=== PATIENT | female | born 1950 | race African-American/Black ===

== ENCOUNTER 2016-09-04 11:30 | Inpatient (IN) | payer OTHER ==
[~2016-09-04] VITALS: Ht 154.9 cm; Wt 83.9 kg
[2016-09-04 11:58] VITALS: BP 118/82
--- NOTE | 2016-09-04 12:00 | NUR ---
Patient ambulated to bed 06.
--- NOTE | 2016-09-04 12:05 | NUR ---
Dr. Connelly evaluating patient at bedside.
--- NOTE | 2016-09-04 12:10 | NUR ---
XRAY at bedside.
--- NOTE | 2016-09-04 12:12 | NUR ---
66/F TO ED WITH C/O GEN WEAKNESS AND BODY ACHES X1 WEEK. DENIES N/V/D. PAIN 01/04. LUNGS CLEAR BILAT. HR EVEN AND REGULAR. AAOX4. VSS. NO SIGNS OF DISTRESS. ERMD TO BEDSIDE FOR EVAL.
[2016-09-04] MEDS ORDERED: PROAIR HFA8.5 GM IH (12:49)
[2016-09-04] MEDS ORDERED: ALDACTONE25 MG PO (12:49)
[2016-09-04] MEDS ORDERED: SINGULAIR10 MG PO (12:49)
[2016-09-04] MEDS ORDERED: DILAUDID2 MG PO (12:49)
[2016-09-04] MEDS ORDERED: LASIX20 MG PO (12:49)
[2016-09-04] MEDS ORDERED: NEURONTIN400 MG PO (12:49)
[2016-09-04] MEDS ORDERED: BREO ELLIPTA1 POW IH (12:49)
[2016-09-04] MEDS ORDERED: POTASSIUM CHLO10 ME2 PO (12:49)
[2016-09-04] MEDS ORDERED: TIZANIDINE PO (12:49)
[2016-09-04] MEDS ORDERED: PROZAC10 MG PO (12:49)
[2016-09-04] MEDS ORDERED: LIDODERM 5%1 EA TP (12:49)
[2016-09-04] MEDS ORDERED: SPIRIVA MD18 MCG/CAP INH (12:49)
[2016-09-04] MEDS ORDERED: LEFLUNOMIDE20 MG PO (12:49)
[2016-09-04] MEDS ORDERED: ECOTRIN81 M2 PO (12:49)
[2016-09-04] MEDS ORDERED: ATIVAN1 MG PO (12:49)
[2016-09-04] MEDS ORDERED: METOPROLOL TART25 MG PO (12:49)
[2016-09-04] MEDS ORDERED: LIPITOR40 MG PO (12:49)
[2016-09-04] MEDS ORDERED: OMEPRAZOLE DR20 MG PO (12:49)
[2016-09-04] MEDS ORDERED: ELAVIL25 MG PO (12:49)
[2016-09-04] MEDS ORDERED: FERROUS SULFAT325 MG PO (12:49)
[2016-09-04] MEDS ORDERED: POTASSIUM CHL 20 MEQ/NACL 0.9% 1,000 ML IV ONE (13:10)
[2016-09-04] MEDS ORDERED: POTASSIUM CHLORIDE 10 MEQ TABER PO ONE (13:10)
--- NOTE | 2016-09-04 13:35 | NUR ---
Patient appears to be resting comfortably in bed. Vital Signs within normal limits. Respirations even and unlabored.
--- NOTE | 2016-09-04 14:11 | NUR ---
Patient will be admitted to care of DR DONALDSON. Admited to TELE. Will go to [id number]. Belongings list completed. Report to NEIL COLES.
[2016-09-04 14:30] VITALS: BP 134/87
--- NOTE | 2016-09-04 15:00 | NUR ---
PT ADMITTED FROM HOME WITH DX: GENERALIZED WEAKNESS, FAILURE TO THRIVE. PT AAOX4. AMBULATED TO BED. PT HAS IV TO RIGHT AC C/O PAIN IV SALINE LOCKED. PATIENT HAS HX OF COPD, ASTHMA, EMPHYSEMA, DENIES ACUTE SOB. DENIES CHEST PAIN. C/O BACK PAIN, WILL F/U WITH HOME MEDS. PT ORIENTED TO HOSPITAL ENVIRONMENT AND CALL LIGHT. VERBALIZED UNDERSTANDING. WILL CONTINUE TO MONITOR.
[2016-09-04 16:00] VITALS: BP 125/69
--- NOTE | 2016-09-04 16:00 | NUR ---
SPOKE WITH DR. DONALDSON REGARDING PT PAIN AND DIET. NEW ORDERS RECEIVED.
[2016-09-04] MEDS: HYDROmorphone 2 MG TAB PO PRN ×2 (16:19→23:55)
[2016-09-04] MEDS: DEXT 5% /NACL 0.9% 1,000 ML IV SCH (16:19)
--- NOTE | 2016-09-04 19:12 | NUR ---
ENDORSED PLAN OF CARE TO NEIL Jamil AT PT BEDSIDE. PT RESTING IN BED. NO S/S OF ACUTE DISTRESS.
--- NOTE | 2016-09-04 19:25 | NUR ---
REPORT RECEIVED FROM DAY NURSESHARYN. PATIENT RESTING IN BED, WATCHING TELEVISION. NO RESPIRATORY DISTRESS, SOB, OR DISCOMFORT. INITIAL ASSESSMENT AND BODY CHECK DONE. PATIENT IS AOX4, SKIN IS INTACT, IV ACCESS TO RIGHT HAND 22G, PATENT. PATIENT SHOWS SIGNS OF GENERALIZED WEAKNESS AT THIS TIME. DISCUSSED PLAN OF CARE, MEDICATION REGIMENT, AND PAIN MANAGEMENT WITH PATIENT. PATIENT VERBALIZED UNDERSTANDING. PLACED PATIENT ON SAFETY/FALL PRECAUTIONS. CALL LIGHT LEFT WITHIN REACH, WILL CONTINUE TO MONITOR.
[2016-09-04] MEDS ORDERED: ONDANSETRON 4 MG/2 ML VIAL IVP PRN (19:40)
[2016-09-04] MEDS ORDERED: ALBUTEROL SULFATE/IPRATROPIU 3 ML SOL IH PRN (19:40)
[2016-09-04] MEDS ORDERED: ACETAMINOPHEN 325 MG TAB PO PRN (19:40)
[2016-09-04 20:00] VITALS: BP 158/72
[2016-09-04] MEDS ORDERED: FUROSEMIDE 20 MG TAB PO SCH (21:00)
[2016-09-04] MEDS ORDERED: TIZANIDINE HCL 4 MG PO SCH (21:00)
--- NOTE | 2016-09-04 22:04 | NUR ---
PATIENT IN BED, SLEEPING. NO RESPIRATORY DISTRESS, SOB, OR DISCOMFORT. CALL LIGHT LEFT WITHIN REACH, WILL CONTINUE TO MONITOR.
[2016-09-04] MEDS: FERROUS SULFATE 325 MG TABEC PO SCH (23:19)
[2016-09-04] MEDS: AMITRIPTYLINE 25 MG TAB PO SCH (23:19)
[2016-09-04] MEDS: ATORVASTATIN 20 MG TAB PO SCH (23:20)
[2016-09-04] MEDS: MONTELUKAST SODIUM 10 MG TAB PO SCH (23:20)
[2016-09-05] VITALS: BP 125/82
--- NOTE | 2016-09-05 00:54 | NUR ---
PATIENT ASLEEP. NO RESPIRATORY DISTRESS, SOB, OR DISCOMFORT. CALL LIGHT LEFT WITHIN REACH, WILL CONTINUE TO MONITOR.
--- NOTE | 2016-09-05 03:05 | NUR ---
PATIENT SLEEPING. NO RESPIRATORY DISTRESS, SOB, OR DISCOMFORT. CALL LIGHT LEFT WITHIN REACH, WILL CONTINUE TO MONITOR.
[2016-09-05 04:00] VITALS: BP 108/74
[2016-09-05] MEDS: DEXT 5% /NACL 0.9% 1,000 ML IV SCH ×3 (05:25→22:29)
--- NOTE | 2016-09-05 06:15 | NUR ---
PATIENT IN BED, ASLEEP. NO RESPIRATORY DISTRESS, SOB, OR DISCOMFORT. CALL LIGHT LEFT WITHIN REACH, WILL CONTINUE TO MONITOR.
--- NOTE | 2016-09-05 07:38 | NUR ---
REPORT GIVEN TO DAY NURSELUCILLE. PATIENT RESTING IN BED, STABLE. NO RESPIRATORY DISTRESS, SOB, OR DISCOMFORT. ALL NEEDS ATTENDED TO DURING SHIFT, CALL LIGHT LEFT WITHIN REACH.
--- NOTE | 2016-09-05 07:39 | NUR ---
RECEIVED REPORT FROM NEIL HINOJOSA. PT IS AAOX4, PT ON ROOM AIR. NO S/S OF DISTRESS NOTED. IV TO RIGHT HAND #22, PATENT AND INTACT. NO N/V OR PAIN INDICATED. SKIN INTACT. ALL SAFETY PRECAUTIONS IN PLACE, SIDE RAILSX2, BED IN LOW POSITION, AND CALL LIGHT WITHIN REACH. WILL CONTINUE TO MONITOR.
[2016-09-05] MEDS ORDERED: MAG SULF 2000 MG/WATER PREMIX 50 ML IV SCH (07:55)
[2016-09-05 08:00] VITALS: BP 138/75
[2016-09-05] MEDS ORDERED: POTASSIUM CHLORIDE 10 MEQ TABER PO SCH ×2 (08:00→12:00)
[2016-09-05] MEDS: ENOXAPARIN 30 MG/0.3 ML SYR SUBQ SCH (08:30)
[2016-09-05] MEDS: ECOTRIN 81 MG TABEC PO SCH (08:33)
[2016-09-05] MEDS: PANTOPRAZOLE 40 MG TABEC PO SCH (08:33)
[2016-09-05] MEDS: POTASSIUM CHLORIDE 10 MEQ TABER PO SCH (08:34)
[2016-09-05] MEDS: LORazepam 1 MG TAB PO SCH (08:34)
[2016-09-05] MEDS: FERROUS SULFATE 325 MG TABEC PO SCH ×2 (08:34→20:22)
[2016-09-05] MEDS: GABAPENTIN 100 MG CAP PO SCH ×3 (08:35→16:34)
[2016-09-05] MEDS: METOPROLOL 25 MG TAB PO SCH (08:35)
[2016-09-05] MEDS: FLUoxetine 10 MG CAP PO SCH (08:36)
[2016-09-05] MEDS: tiZANidine 4 MG TAB PO SCH ×2 (08:37→20:21)
--- NOTE | 2016-09-05 08:44 | NUR ---
PATIENT HAS BEEN SCREENED AND CATEGORIZED HIGH NUTRITION RISK. PATIENT WILL BE SEEN WITHIN 1-2 DAYS OF ADMISSION. 09/05/16-09/06/[address]
[2016-09-05] MEDS: HYDROmorphone 2 MG TAB PO PRN (08:45)
[2016-09-05] MEDS: LIDOCAINE 5% 1 EA PATCH TP SCH (08:45)
--- NOTE | 2016-09-05 08:48 | NUR ---
PT TOLERATED MEDS WELL. BP 138/75, HR 69. PT C/O 03/07 PAIN ADMINISTERED DILAUDID PO ORDERED. PT TOLERATED WELL. WILL CONTINUE TO MONITOR.
[2016-09-05] MEDS ORDERED: NON-FORMULARY ITEM (Omeprazole (Omeprazole Dr) 20 MG) PO SCH (09:00)
[2016-09-05] MEDS ORDERED: LEFLUNOMIDE 20 MG PO SCH (09:00)
[2016-09-05] MEDS ORDERED: NON-FORMULARY ITEM (Tiotropium Bromide* (Spiriva Mdi*) 1 CAP) INH SCH (09:00)
[2016-09-05] MEDS ORDERED: NON-FORMULARY ITEM (Fluticasone/Vilanterol (Breo Ellipta 100-25 Mcg INH) 1 POW) IH SCH (09:00)
[2016-09-05] MEDS ORDERED: SPIRONOLACTONE 25 MG TAB PO SCH (09:00)
[2016-09-05] MEDS: IPRATROPIUM 0.02% 0.5 MG/2.5 ML NEBU INH SCH ×3 (11:30→19:09)
[2016-09-05 12:00] VITALS: BP 109/69
--- NOTE | 2016-09-05 12:15 | NUR ---
PT TOLERATED MEDS WELL. WILL CONTINUE TO MONITOR.
--- NOTE | 2016-09-05 14:00 | NUR ---
PT SLEEPING, NO DISTRESS NOTED.
--- NOTE | 2016-09-05 14:35 | NUR ---
09/05/16 RD INITIAL ASSESSMENT COMPLETED PLEASE REFER TO NUTRITION ASSESSMENT UNDER CARE ACTIVITY FOR ESTIMATED NUTRITIONAL NEEDS. RD RECOMMENDATIONS: 1. CONTINUE CARDIAC DIET MEDICALLY APPROPRIATE. --NOTE RD WILL MONITOR RENAL FUNCTIONS FOR ANY DIET MODIFICATIONS. --NOTE PT CURRENTLY MEETING 100% OF ESTIMATED KCAL AND PROTEIN NEEDS. 2. RD WILL F/U 3-5 DAYS; MODERATE RISK. STEPHANE GARY, RD
--- NOTE | 2016-09-05 15:00 | NUR ---
VSS. WILL CONTINUE TO MONITOR.
[2016-09-05 16:00] VITALS: BP 108/72
--- NOTE | 2016-09-05 16:37 | NUR ---
PT TOLERATED MEDS WELL. WILL CONTINUE TO MONITOR.
--- NOTE | 2016-09-05 17:47 | NUR ---
TALKED TO RESPIRATORY THERAPIST, MADE RT AWARE OF PT'S OVERDUE INHALER. RT TO FOLLOW UP.
--- NOTE | 2016-09-05 17:50 | NUR ---
RECEIVED CALL FROM LUCILLE/RN ON HHN QID THERAPY WITH IPRATROPIUM RESEARCHED ORDER HISTORY HHN ORDERED 09/05/[address] KIN KINNEY [facility]N THERAPY ORDER WAS NOT RECEIVED IN RESPIRATORY DEPARTMENT WILL ENDORSE TO NOC SHIFT AT 1900 HOURS
--- NOTE | 2016-09-05 17:53 | NUR ---
TALKED TO RT, RT DID NOT RECEIVE BREATHING TXT ORDER. BREATHING TXT TO BE RESUMED AT 1900. PT HAS NO S/S OF DISTRESS, PT USES INHALER NEEDED AT HOME.
--- NOTE | 2016-09-05 18:46 | NUR ---
PT FEELING SOB. PT STATED CLEANING WIPES MADE HER FEEL SOB. RT CALLED TO THE FLOOR. WILL CONTINUE TO MONITOR.
--- NOTE | 2016-09-05 19:10 | NUR ---
RT IN TO SEE PT. PT RECEIVING BREATHING TXT.
--- NOTE | 2016-09-05 19:17 | NUR ---
ENDORSED CARE TO NEIL GROVES. PT IN STABLE CONDITION.
--- NOTE | 2016-09-05 19:20 | NUR ---
RECEIVED PT AWAKE PRESENTLY GETTING BREATHING TX FROM RT LEÓN, VITAL SIGNS STABLE, NO SOB NOTED, IVF INFUSING WELL, SAFETY MEASURES IN PLACE, ENCOURAGE TO CALL FOR ASSISTANCE, CALL LIGHT WITHIN REACH.
[2016-09-05 20:00] VITALS: BP 115/69
[2016-09-05] MEDS: ATORVASTATIN 20 MG TAB PO SCH (20:21)
[2016-09-05] MEDS: AMITRIPTYLINE 25 MG TAB PO SCH (20:22)
[2016-09-05] MEDS: MONTELUKAST SODIUM 10 MG TAB PO SCH (20:22)
--- NOTE | 2016-09-05 20:30 | NUR ---
DUE MEDICATIONS TAKEN, TOLERATED WELL, ALL NEEDS ATTENDED.
--- NOTE | 2016-09-05 22:30 | NUR ---
ROUNDED ON PT, SLEEPING, NO SIGNS OF RESP DISTRESS, IVF INFUSING WELL, MONITORED CLOSELY.
[2016-09-06] VITALS: BP 105/54
--- NOTE | 2016-09-06 | NUR ---
SLEEPING, EASILY AROUSABLE, VITAL SIGNS STABLE, NO SOB NOTED, IVF INFUSING WELL, CONTINUE TO MONITOR CLOSELY.
--- NOTE | 2016-09-06 01:30 | NUR ---
PT USES BEDSIDE COMMODE AND VOIDED FREELY.
[2016-09-06 04:00] VITALS: BP 116/71
--- NOTE | 2016-09-06 04:00 | NUR ---
PT SLEEPING, EASILY AROUSABLE, VITAL SIGNS STABLE, NO SOB NOTED, MONITORED CLOSELY.
--- NOTE | 2016-09-06 06:20 | NUR ---
ROUNDED ON PT, SLEEPING, NO SIGNS OF DISTRESS, IVF INFUSING WELL, MONITORED CLOSELY.
--- NOTE | 2016-09-06 07:20 | NUR ---
PT SLEEPING, NO SIGNS OF DISTRESS, REPORT GIVEN TO RN LUCILLE FOR CONTINUITY OF CARE.
--- NOTE | 2016-09-06 07:21 | NUR ---
RECEIVED REPORT FROM NEIL GROVES. PT IS AAOX4. PT ON ROOM AIR. NO S/S OF DISTRESS NOTED. IV TO RIGHT HAND #22 , PATENT AND INTACT. SKIN INTACT. NO N/V OR PAIN INDICATED. ALL SAFETY PRECAUTIONS IN PLACE, SIDE RAILSX2, BED IN LOW POSITION, AND CALL LIGHT WITHIN REACH. WILL CONTINUE TO MONITOR.
[2016-09-06] MEDS: IPRATROPIUM 0.02% 0.5 MG/2.5 ML NEBU INH SCH ×4 (07:45→19:52)
[2016-09-06 08:00] VITALS: BP 128/73
[2016-09-06] MEDS: DEXT 5% /NACL 0.9% 1,000 ML IV SCH ×2 (08:05→12:19)
[2016-09-06] MEDS: PANTOPRAZOLE 40 MG TABEC PO SCH (08:33)
[2016-09-06] MEDS: ECOTRIN 81 MG TABEC PO SCH (08:34)
[2016-09-06] MEDS: LORazepam 1 MG TAB PO SCH (08:34)
[2016-09-06] MEDS: FLUoxetine 10 MG CAP PO SCH (08:34)
[2016-09-06] MEDS: POTASSIUM CHLORIDE 10 MEQ TABER PO SCH (08:35)
[2016-09-06] MEDS: FERROUS SULFATE 325 MG TABEC PO SCH ×2 (08:35→20:34)
[2016-09-06] MEDS: METOPROLOL 25 MG TAB PO SCH (08:35)
[2016-09-06] MEDS: tiZANidine 4 MG TAB PO SCH ×2 (08:36→20:34)
[2016-09-06] MEDS: GABAPENTIN 100 MG CAP PO SCH ×3 (08:36→16:52)
[2016-09-06] MEDS: SPIRONOLACTONE 25 MG TAB PO SCH (08:37)
[2016-09-06] MEDS: LIDOCAINE 5% 1 EA PATCH TP SCH (08:38)
[2016-09-06] MEDS: ENOXAPARIN 30 MG/0.3 ML SYR SUBQ SCH (08:39)
--- NOTE | 2016-09-06 08:42 | NUR ---
VSS. PT TOLERATED MEDS WELL. PT REFUSED LIDOCAINE PATCH. WILL CONTINUE TO MONITOR.
--- NOTE | 2016-09-06 10:00 | NUR ---
PT SLEEPING, NO DISTRESS NOTED.
[2016-09-06 12:00] VITALS: BP 107/57
--- NOTE | 2016-09-06 12:23 | NUR ---
PT TOLERATED MEDS WELL. WILL CONTINUE TO MONITOR.
[2016-09-06] MEDS ORDERED: POTASSIUM CHLORIDE 10 MEQ TABER PO SCH (13:24)
[2016-09-06] MEDS ORDERED: MAG SULF 2000 MG/WATER PREMIX 50 ML IV SCH (14:00)
--- NOTE | 2016-09-06 14:05 | NUR ---
PT TOLERATED MEDS WELL. WILL CONTINUE TO MONITOR.
[2016-09-06 16:00] VITALS: BP 129/70
--- NOTE | 2016-09-06 16:55 | NUR ---
PT TOLERATED MEDS WELL. WILL CONTINUE TO MONITOR.
--- NOTE | 2016-09-06 17:00 | NUR ---
PT SLEEPING NO DISTRESS NOTED.
--- NOTE | 2016-09-06 19:17 | NUR ---
ENDORSED CARE TO NEIL GROVES. PT IN STABLE CONDITION.
--- NOTE | 2016-09-06 19:30 | NUR ---
RECEIVED PT AWAKE, COMPLAINING OF BACK PAIN 10/10, VITAL SIGNS STABLE, NO SOB NOTED, MEDICATED PRN FOR PAIN, IVF INFUSING WELL, POC DISCUSSED, SAFETY MEASURES IN PLACE, CALL LIGHT WITHIN REACH.
[2016-09-06 20:00] VITALS: BP 133/73
[2016-09-06] MEDS: MONTELUKAST SODIUM 10 MG TAB PO SCH (20:34)
[2016-09-06] MEDS: ATORVASTATIN 20 MG TAB PO SCH (20:34)
[2016-09-06] MEDS: AMITRIPTYLINE 25 MG TAB PO SCH (20:34)
--- NOTE | 2016-09-06 20:57 | NUR ---
DUE PO MEDS TAKEN, TOLERATED WELL, ALL NEEDS ATTENDED.
[2016-09-06] MEDS: HYDROmorphone 1 MG/ML AMP IVP PRN (21:01)
--- NOTE | 2016-09-06 22:10 | NUR ---
ROUNDED ON PT, AWAKE USING HER PORTABLE TABLET DEVICE, NO NEEDS AT THIS TIME, MONITORED CLOSELY.
--- NOTE | 2016-09-06 23:35 | NUR ---
ASSISTED BY BUSINESS PROPOSAL REP TO BEDSIDE COMMODE, TOLERATED WELL, VITAL SIGNS STABLE, DENIES ANY PAIN, IVF INFUSING WELL, CONTINUE TO MONITOR CLOSELY.
[2016-09-07] VITALS: BP 113/68
[2016-09-07] MEDS: DEXT 5% /NACL 0.9% 1,000 ML IV SCH (03:46)
[2016-09-07 04:00] VITALS: BP 107/63
--- NOTE | 2016-09-07 04:00 | NUR ---
PT SLEEPING, EASILY AROUSABLE, VITAL SIGNS STABLE, DENIES ANY PAIN, MONITORED CLOSELY.
--- NOTE | 2016-09-07 06:00 | NUR ---
PT SLEEPING, NO SIGNS OF DISTRESS, MONITORED CLOSELY.
[2016-09-07] MEDS: IPRATROPIUM 0.02% 0.5 MG/2.5 ML NEBU INH SCH ×4 (07:18→19:43)
--- NOTE | 2016-09-07 07:25 | NUR ---
PT SLEEPING, NO SIGNS OF DISTRESS, REPORT GIVEN TO NEIL HINOJOSA FOR CONTINUITY OF CARE.
--- NOTE | 2016-09-07 07:25 | NUR ---
RECEIVED PATIENT REPORT AT BEDSIDE. PATIENT ASLEEP BUT EASILY AROUSABLE. NO S/S OF DISTRESS NOTED. PATIENT ON ROOM AIR. IV TO THE RIGHT HAND INTACT WITH IVF INFUSING WELL. PATIENT ON TELE MONITORING. BED LOWERED WITH CALL LIGHT WITHIN REACH. WILL CONTINUE TO MONITOR
[2016-09-07 08:00] VITALS: BP 136/81
[2016-09-07] MEDS: GABAPENTIN 100 MG CAP PO SCH ×4 (08:47→17:39)
[2016-09-07] MEDS: ECOTRIN 81 MG TABEC PO SCH (08:48)
[2016-09-07] MEDS: FLUoxetine 10 MG CAP PO SCH (08:48)
[2016-09-07] MEDS: SPIRONOLACTONE 25 MG TAB PO SCH (08:48)
[2016-09-07] MEDS: POTASSIUM CHLORIDE 10 MEQ TABER PO SCH (08:48)
[2016-09-07] MEDS: tiZANidine 4 MG TAB PO SCH ×2 (08:49→20:56)
[2016-09-07] MEDS: METOPROLOL 25 MG TAB PO SCH (08:49)
[2016-09-07] MEDS: LORazepam 1 MG TAB PO SCH (08:49)
[2016-09-07] MEDS: FERROUS SULFATE 325 MG TABEC PO SCH ×2 (08:49→20:56)
[2016-09-07] MEDS: LIDOCAINE 5% 1 EA PATCH TP SCH (08:50)
[2016-09-07] MEDS: PANTOPRAZOLE 40 MG TABEC PO SCH (08:50)
[2016-09-07] MEDS: ENOXAPARIN 30 MG/0.3 ML SYR SUBQ SCH (08:52)
--- NOTE | 2016-09-07 09:00 | NUR ---
ADMINISTERED DUE MEDS. PATIENT TOLERATED WELL
[2016-09-07 12:00] VITALS: BP 142/90
[2016-09-07] MEDS ORDERED: MAGNESIUM OXIDE 400 MG TAB PO SCH (12:00)
[2016-09-07] MEDS ORDERED: POTASSIUM CHLORIDE 10 MEQ TABER PO SCH (12:00)
[2016-09-07] MEDS: HYDROmorphone 1 MG/ML AMP IVP PRN ×2 (12:26→20:57)
--- NOTE | 2016-09-07 13:30 | NUR ---
PATIENT ASLEEP. NO S/S OF DISTRESS NOTED
--- NOTE | 2016-09-07 14:27 | NUR ---
CM NOTE INITIAL REVIEW FAXED TO [facility] / FAX# [phone], ATTN: ELENI [phone]
--- NOTE | 2016-09-07 15:38 | NUR ---
PHYSICAL THERAPY CO-SIGN The Physical Therapy Progress Notes documented by Metal Furnace Operator have been reviewed. Pt IS SHOWING PROGRESS W/POC; CONT PER TX PLAN Reviewed/Co-Signed by: Evi Jose PT Documentation Done by: ELSIE GUTIERREZ BOILERMAKER [employer]IP Addendum: 09/07/16 at 1539 by Evi Jose PT Amended: Links added.
[2016-09-07 16:00] VITALS: BP 122/63
--- NOTE | 2016-09-07 16:30 | NUR ---
PATIENT WATCHING TELEVISION IN BED. NO S/S OF DISTRESS NOTED
--- NOTE | 2016-09-07 19:20 | NUR ---
RECEIVED PT FROM ASHISH Howe RN FOR PT CONTINUITY OF CARE AT BEDSIDE AT THIS TIME. NO ACUTE DISTRESS NOTED.
--- NOTE | 2016-09-07 19:25 | NUR ---
SHIFT ASSESSMENT DONE AT THIS TIME. PT IS A/O X4, ABLE TO VERBALIZE NEEDS AND FOLLOW COMMANDS. NO ACUTE DISTRESS NOTED. DISCUSSED PLAN OF CARE WITH PT, VERBALIZED UNDERSTANDING. VITAL SIGNS ARE STABLE, PT ON ROOM AIR, OXYGEN SATURATION AT 96%. DENIES CHEST PAIN, SOB, AND N/V/D. PT STATES TO HAVE BACK PAIN, WILL SEE eMAR. PT LUNGS ARE CLEAR, BOWEL SOUNDS ARE ACTIVE. SKIN INTACT. IV ACCESS TO RT HAND #22G, PATENT AND INTACT. NO SWELLING NOTED. SAFETY PRECAUTIONS IMPLEMENTED. CALL LIGHT WITHIN EASY REACH. WILL CONTINUE TO MONITOR PT. ALL NEEDS MET.
--- NOTE | 2016-09-07 19:35 | NUR ---
ENDORSED CONTINUITY OF CARE TO THE NIGHT NURSE. PATIENT IN STABLE CONDITION
[2016-09-07 20:00] VITALS: BP 124/62
[2016-09-07] MEDS: AMITRIPTYLINE 25 MG TAB PO SCH (20:56)
[2016-09-07] MEDS: ATORVASTATIN 20 MG TAB PO SCH (20:56)
[2016-09-07] MEDS: MONTELUKAST SODIUM 10 MG TAB PO SCH (20:56)
--- NOTE | 2016-09-07 20:56 | NUR ---
PROVIDED PT WITH PM SCHEDULED MEDICATION AND PAIN MEDICATION, TOLERATED WELL. NO S/S OF ACUTE DISTRESS. WILL CONTINUE TO MONITOR. CALL LIGHT WITHIN REACH.
[2016-09-08] VITALS: BP 118/68
--- NOTE | 2016-09-08 00:20 | NUR ---
PT VITAL SIGNS REMAIN STABLE, NO S/S OF ACUTE DISTRESS NOTED. CALL LIGHT WITHIN REACH.
--- NOTE | 2016-09-08 02:12 | NUR ---
PT IS SLEEPING AT THIS TIME, NO ACUTE DISTRESS. CALL LIGHT WITHIN REACH.
--- NOTE | 2016-09-08 03:40 | NUR ---
VITALS SIGNS REMAIN STABLE, NO S/S OF ACUTE DISTRESS. CALL LIGHT WITHIN REACH.
[2016-09-08 04:00] VITALS: BP 119/78
--- NOTE | 2016-09-08 06:30 | NUR ---
PT NOTED SLEEPING WELL, NO DISTRESS. CALL LIGHT WITHIN REACH.
[2016-09-08] MEDS: IPRATROPIUM 0.02% 0.5 MG/2.5 ML NEBU INH SCH ×3 (07:12→19:34)
--- NOTE | 2016-09-08 07:17 | NUR ---
ENDORSED PT TO ERMIAS RN FOR PT CONTINUITY OF CARE, PT NOTED STABLE NO ACUTE DISTRESS. PT SLEEPING.
--- NOTE | 2016-09-08 07:20 | NUR ---
RECEIVED PT SLEEPING, NO UNUSUAL OBSERVATION NOTED AT THIS TIME,NO SOB NOTED.
[2016-09-08 07:39] VITALS: BP 119/70
[2016-09-08] MEDS: LIDOCAINE 5% 1 EA PATCH TP SCH ×2 (09:00→14:08)
--- NOTE | 2016-09-08 09:26 | NUR ---
PT EATING BREAKFAST AT THIS TIME.
[2016-09-08] MEDS: GABAPENTIN 100 MG CAP PO SCH ×3 (09:38→17:50)
[2016-09-08] MEDS: ECOTRIN 81 MG TABEC PO SCH (09:38)
[2016-09-08] MEDS: FERROUS SULFATE 325 MG TABEC PO SCH ×2 (09:38→21:39)
[2016-09-08] MEDS: FLUoxetine 10 MG CAP PO SCH (09:39)
[2016-09-08] MEDS: ENOXAPARIN 30 MG/0.3 ML SYR SUBQ SCH (09:40)
[2016-09-08] MEDS: LORazepam 1 MG TAB PO SCH (09:48)
[2016-09-08] MEDS: PANTOPRAZOLE 40 MG TABEC PO SCH (09:48)
[2016-09-08] MEDS: SPIRONOLACTONE 25 MG TAB PO SCH (09:48)
[2016-09-08] MEDS: tiZANidine 4 MG TAB PO SCH ×2 (09:48→21:40)
[2016-09-08] MEDS: POTASSIUM CHLORIDE 10 MEQ TABER PO SCH (09:49)
[2016-09-08] MEDS: METOPROLOL 25 MG TAB PO SCH (09:49)
--- NOTE | 2016-09-08 10:04 | NUR ---
TALKED TO PT REGARDING LEFLUNOMIDE, NOT AVAILABLE IN PHARMACY IF FAMILY CAN BRING IT PER PT OK
--- NOTE | 2016-09-08 11:14 | NUR ---
PT SLEEPING AT THIS TIME, NO SOB NOTED
[2016-09-08] MEDS: ALBUTEROL 0.083% 2.5 MG/3 ML NEBU INH SCH ×2 (11:52→19:32)
[2016-09-08 12:00] VITALS: BP 113/69
--- NOTE | 2016-09-08 12:26 | NUR ---
TALKED TO DR. DONALDSON MADE AWARE PT WITH WHEEZING AND WITH SOB, PT PUT ON O2 AT 2L/MIN, DR. DONALDSON WITH ORDER CARRIED OUT, PER PT SHE ALSO USED OXYGEN AT HOME NEEDED.
[2016-09-08] MEDS ORDERED: methylPREDNISolone SS 40 MG/ML VIAL IVP SCH (12:33)
--- NOTE | 2016-09-08 12:35 | NUR ---
FAXED CONCURRENT REVIEW TO [facility] [place] [phone] PHONE ELENI [phone]
--- NOTE | 2016-09-08 13:15 | NUR ---
PT SLEEPING AT THIS TIME ON O2 AT 2L/MIN,NO SOB NOTED, O2 AT 2L/MIN, WELL TOLERATED, WITH GOOD APPETITE.
--- NOTE | 2016-09-08 13:52 | NUR ---
AMBULATING WITH PHYSICAL THERAPY, PT AAO, NO DISTRESS NOTED.
--- NOTE | 2016-09-08 14:02 | NUR ---
DR. DONALDSON AT BEDSIDE, MADE AWARE REGARDING THE ATROVENT AND ALBUTEROL ORDER, TO KEEP FREQUENCY THE SAME
--- NOTE | 2016-09-08 14:13 | NUR ---
DR. DONALDSON AWARE OF THE UA 3 + NO ORDER MADE
[2016-09-08 15:54] VITALS: BP_SYST 105; BP_SYST 122; BP_DIAS 70; BP_DIAS 80
--- NOTE | 2016-09-08 16:01 | NUR ---
PT IN THE BATHROOM AT THIS TIME, NO SOB WILL RECHECK PT WHEN BACK TO BED.
--- NOTE | 2016-09-08 17:05 | NUR ---
PT STILL SLEEPING ON O2 AT 2L/MIN, SKIN WARM TO TOUCH RESP. EVEN AND UNLABORED, NO SOB NOTED.
[2016-09-08] MEDS: methylPREDNISolone SS 40 MG/ML VIAL IVP SCH ×2 (17:50→23:53)
--- NOTE | 2016-09-08 18:28 | NUR ---
PT WITH GOOD APPETITE, NO SOB, TALKING TO HER ROOM MATE WHILE EATING, SKIN WARM TO TOUCH RESP. EVEN AND UNLABORED
--- NOTE | 2016-09-08 19:16 | NUR ---
RECEIVED PT REPORT FROM ERMIAS RN AT BEDSIDE, FOR CONTINUITY OF CARE. PT IN IN BED, NO S/S OF ACUTE DISTRESS NOTED. NOTED STABLE, CALL LIGHT WITHIN REACH.
--- NOTE | 2016-09-08 19:17 | NUR ---
BEDSIDE REPORT GIVEN TO MARK
--- NOTE | 2016-09-08 19:26 | NUR ---
SHIFT ASSESSMENT DONE AT THIS TIME. PT IS A/O X4, FOLLOWS COMMANDS AND ABLE TO VERBALIZE NEEDS. NO ACUTE DISTRESS NOTED. DISCUSSED PLAN OF CARE WITH PT, VERBALIZED UNDERSTANDING. VITAL SIGNS ARE STABLE, PT ON ROOM AIR, OXYGEN SATURATION AT 100%. DENIES CHEST PAIN, SOB, AND N/V/D, NO WHEEZING NOTED. PT DENIES PAIN AT THIS TIME. PT LUNGS ARE CLEAR, BOWEL SOUNDS ARE ACTIVE. SKIN INTACT. IV ACCESS TO RT HAND #22G, PATENT AND INTACT. NO SWELLING NOTED. SAFETY PRECAUTIONS IMPLEMENTED. CALL LIGHT WITHIN EASY REACH. WILL CONTINUE TO MONITOR PT. ALL NEEDS MET.
[2016-09-08] MEDS: BUDESONIDE 0.5 MG/2 ML NEBU INH SCH (19:32)
[2016-09-08 20:00] VITALS: BP 144/78
[2016-09-08] MEDS: MONTELUKAST SODIUM 10 MG TAB PO SCH (21:39)
[2016-09-08] MEDS: ATORVASTATIN 20 MG TAB PO SCH (21:39)
[2016-09-08] MEDS: AMITRIPTYLINE 25 MG TAB PO SCH (21:40)
--- NOTE | 2016-09-08 21:40 | NUR ---
PT PO SCHEDULED MEDICATIONS PROVIDED, TOLERATED WELL. PT ON CHAIR AT BEDSIDE. NO S/S OF ACUTE DISTRESS NOTED. CALL LIGHT WITHIN REACH.
--- NOTE | 2016-09-08 23:40 | NUR ---
VITAL SIGNS REMAINS STABLE, NO WHEEZING NOTED OR SOB NOTED. PT REMAINS STABLE, C.O. PAIN WILL ADMINISTER PAIN MEDS., SEE eMAR.
[2016-09-08] MEDS: HYDROmorphone 1 MG/ML AMP IVP PRN (23:53)
--- NOTE | 2016-09-08 23:53 | NUR ---
PROVIDED PAIN MEDICATION. IV STILL INTACT. NO S/S OF ACUTE DISTRESS. WILL CONTINUE TO MONITOR. CALL LIGHT WITHIN REACH.
[2016-09-09] VITALS (7 sets, daily range): BP systolic 116–152; BP diastolic 62–99
[2016-09-09] MEDS: IPRATROPIUM 0.02% 0.5 MG/2.5 ML NEBU INH SCH ×4 (01:15→19:31)
[2016-09-09] MEDS: ALBUTEROL 0.083% 2.5 MG/3 ML NEBU INH SCH ×4 (01:15→19:31)
--- NOTE | 2016-09-09 01:48 | NUR ---
PT NOTED AWAKE IN BED, DRINKING WATER. NO S/S OF ACUTE DISTRESS NOTED. DENIES SOB OR CP. CALL LIGHT WITHIN REACH. WILL CONTINUE TO MONITOR.
--- NOTE | 2016-09-09 04:26 | NUR ---
PT NOTED SLEEPING WELL, NO S/S OF ACUTE DISTRESS NOTED. CALL LIGHT WITHIN REACH.
[2016-09-09] MEDS: methylPREDNISolone SS 40 MG/ML VIAL IVP SCH ×3 (05:06→17:18)
[2016-09-09] MEDS: BUDESONIDE 0.5 MG/2 ML NEBU INH SCH ×2 (06:44→19:31)
--- NOTE | 2016-09-09 07:12 | NUR ---
ENDORSED PT TO ANDERSON TREJO FOR PT CONTINUITY OF CARE. PT NOTED STABLE IN BED, RESTING WELL. CALL LIGHT WITHIN REACH.
--- NOTE | 2016-09-09 07:13 | NUR ---
RECEIVED REPORT FROM THE ROUTER OPERATOR RADIAL NURSE AT BEDSIDE. PT IS AWAKE AND ALERT. I INTRODUCED MYSELF AND UPDATED THE BOARD. PT IS NOT WEARING HER NC AT THIS TIME. NOTED THE IV ON R HAND 22G SL AT THIS TIME. PT IS AMBULATING TO THE BATHROOM. NO SIGNS OF DISTRESS. SKIN INTACT. SHE STILL HAS SOME SOB BUT DOING MUCH BETTER. ALL NEEDS MET. WILL CONTINUE TO MONITOR PT.
[2016-09-09] MEDS: ECOTRIN 81 MG TABEC PO SCH (08:39)
[2016-09-09] MEDS: GABAPENTIN 100 MG CAP PO SCH ×3 (08:39→16:48)
[2016-09-09] MEDS: tiZANidine 4 MG TAB PO SCH (08:39)
[2016-09-09] MEDS: ENOXAPARIN 30 MG/0.3 ML SYR SUBQ SCH (08:39)
[2016-09-09] MEDS: FERROUS SULFATE 325 MG TABEC PO SCH (08:40)
[2016-09-09] MEDS: FLUoxetine 10 MG CAP PO SCH (08:40)
[2016-09-09] MEDS: POTASSIUM CHLORIDE 10 MEQ TABER PO SCH (08:40)
[2016-09-09] MEDS: SPIRONOLACTONE 25 MG TAB PO SCH (08:40)
[2016-09-09] MEDS: METOPROLOL 25 MG TAB PO SCH (08:40)
[2016-09-09] MEDS: PANTOPRAZOLE 40 MG TABEC PO SCH (08:40)
--- NOTE | 2016-09-09 08:40 | NUR ---
ADMINISTERED MORNING MEDS. PT TOLERATED WELL. EXPLAINED SHE IS NOT GETTING 2 OF HER HOME MEDS HERE, ONE FOR HER MIGRAINE AND THE OTHER FOR HER SHAKES. WILL F/U WITH . WILL CONTINUE TO MONITOR PT.
[2016-09-09] MEDS: HYDROmorphone 2 MG TAB PO PRN (08:41)
[2016-09-09] MEDS: LORazepam 1 MG TAB PO SCH (08:46)
--- NOTE | 2016-09-09 10:56 | NUR ---
FAXED CONCURRENT REVIEW TO [facility] [phone] PHONE ELENI [phone]
--- NOTE | 2016-09-09 11:21 | NUR ---
PT SITTING UP IN HER BED, ON THE PHONE. NO SIGNS OF DISTRESS. WILL CONTINUE TO MONITOR PT.
--- NOTE | 2016-09-09 11:25 | NUR ---
Carter. IS HERE FOR EVAL. PER Carter. SHE MAY NEED A CANE. BUT HER GAIT IS STEADY.
[2016-09-09] MEDS: HYDROmorphone 1 MG/ML AMP IVP PRN ×2 (12:45→16:49)
--- NOTE | 2016-09-09 13:36 | NUR ---
PT VISITING WITH HER ROOMMATE. NO SIGNS OF DISTRESS. NO COMPLAINTS. HEADACHE BETTER. CALL LIGHT WITHIN REACH. WILL CONTINUE TO MONITOR PT.
--- NOTE | 2016-09-09 14:54 | NUR ---
PT IS STILL VISITING WITH HER ROOMMATE, JUST TALKING AWAY. SHE HAS HER NC ON. STATED THAT SHE FELT A BUT SOB. PAIN IS BETTER. NO COMPLAINTS AT THIS TIME. WILL CONTINUE TO MONITOR PT.
[2016-09-09] MEDS ORDERED: PREDNISONE20 MG PO (16:53)
--- NOTE | 2016-09-09 16:58 | NUR ---
RECEIVED ORDERS FROM DR. DONALDSON FOR DISCHARGE. PER PT, NO RIDE UNTIL 2029. FRIEND WILL COME PICK HER UP. I WILL START THE D/C PAPERWORK. BE ALL READY FOR D/C.
--- NOTE | 2016-09-09 18:25 | NUR ---
PT ATE ALL HER DINNER. RESTING COMFORTABLY. WILL START GETTING READY FOR DISCHARGE. NO COMPLAINTS AT THIS TIME.
--- NOTE | 2016-09-09 19:00 | NUR ---
REMOVED IV, CANNULA INTACT. IT WAS BOTHERING HER. NO SIGNS OF BLEEDING NOTED. WILL CONTINUE TO MONITOR PT.
--- NOTE | 2016-09-09 19:10 | NUR ---
ENDORSED PT TO THE COMMUNITY NUTRITION EDUCATOR NURSE AT BEDSIDE FOR CONTINUITY OF CARE. PT IS IN STABLE CONDITION. SHE WILL BE LEAVING AT 8:30. COMMUNITY NUTRITION EDUCATOR NURSE WILL CONTINUE W/ D/C.
--- NOTE | 2016-09-09 19:11 | NUR ---
RECEIVED REPORT FROM NEIL BARRON. PT IS AAOX4 HAS NO COMPLAIN OF PAIN. NO S/S OF RESPIRATORY DISTRESS/DISCOMFORT NOTED. SKIN IS INTACT. PLAN OF CARE DISCUSSED, VERBALIZED UNDERSTANDING. SAFETY MEASURE S CHECKED, CALL LIGHT WITHIN REACH. WILL CONTINUE TO MONITOR.
--- NOTE | 2016-09-09 20:30 | NUR ---
DISCHARGED PT IN STABLE CONDITION. ALL PAPERWORK SIGNED. ALL QUESTIONED ANSWERED. ALL BELONGINGS AND PRESCRIPTIONS IN PATIENT POSSESSION. IV DC WITH CANNULA INTACT. WRISTBANDS AND TELE MONITOR REMOVED. NOTIFIED CASTING SORTER. TRANSPORTED VIA WHEELCHAIR WITH FAMILY PRESENT AT SIDE.
== END 2016-09-09 20:35 | disposition home or self-care (01) | DRG 683 ==
LOC: MED 11:30 → MTU 13:49
PROVIDERS: ADMIT Internal Medicine Pulmonary Disease; ATTEND Internal Medicine Pulmonary Disease
DX: N17.9 Acute kidney failure, unspecified (principal); J45.901 Unspecified asthma with (acute) exacerbation; I13.0 Hypertensive heart and chronic kidney disease with heart failure and stage 1 through stage 4 chronic kidney disease, or unspecified chronic kidney disease; E87.6 Hypokalemia; E86.0 Dehydration; E86.9 Volume depletion, unspecified; M79.7 Fibromyalgia; M06.9 Rheumatoid arthritis, unspecified; I50.9 Heart failure, unspecified; N18.9 Chronic kidney disease, unspecified; R63.0 Anorexia; R62.7 Adult failure to thrive; E83.42 Hypomagnesemia; G89.4 Chronic pain syndrome; R63.4 Abnormal weight loss; T75.89XA Other specified effects of external causes, initial encounter; Y92.239 Unspecified place in hospital as the place of occurrence of the external cause; Z87.891 Personal history of nicotine dependence; Z68.34 Body mass index [BMI] 34.0-34.9, adult; Z79.899 Other long term (current) drug therapy; Z86.73 Personal history of transient ischemic attack (TIA), and cerebral infarction without residual deficits; Y93.9 Activity, unspecified

== ENCOUNTER 2016-11-09 11:52 | Inpatient (IN) | payer OTHER ==
[~2016-11-09] VITALS: Ht 154.9 cm; Wt 75.8 kg
[~2016-11-09 11:52] MED LIST: ALBU0.0946 IH; ASPI-1440 PO; ATOR40TA PO; ELA25 PO; FERR325E14 PO; FLUO10CA21 PO; FLUT1POW3 IH; FURO-572 PO; GABA400C PO; HYDR2TAB44 PO; LEFL20TA18 PO; LID5T TP; LORA-476 PO; METO25TA PO; MONT10TA35 PO; OMEP20EC6 PO; PRED20TA5 PO; SPIMDI INH; SPIR25TA PO; TIZA2TAB3 PO; [UNRECOGNIZED DRUG - CODE] PO
[2016-11-09 12:02] VITALS: BP 137/84
[2016-11-09 13:45] LABS: BASOPHILS # (AUTO) 0.1 K/uL (0.00-0.22); BASOPHILS % (AUTO) 1.6 % (0.0-2.0); EOSINOPHILS # (AUTO) 0.7 K/uL (0-0.4); EOSINOPHILS % (AUTO) 8.6 % (0.0-4.0); HEMATOCRIT 45.6 % (36-48); HEMOGLOBIN 14.5 g/dL (12.0-16.0); LYMPHOCYTES # (AUTO) 2.1 K/uL (2.5-16.5); LYMPHOCYTES % (AUTO) 27.2 % (20.5-51.1); MEAN CORPUSCULAR HEMOGLOBIN 28 pg (27-31); MEAN CORPUSCULAR HGB CONC 32 g/dL (33-37); MEAN CORPUSCULAR VOLUME 89 fL (80-94); MONOCYTES # (AUTO) 0.9 K/uL (0.8-1.0); MONOCYTES % (AUTO) 11.9 % (1.7-9.3); NEUTROPHILS # (AUTO) 3.9 K/uL (1.8-7.7); NEUTROPHILS % (AUTO) 50.7 % (42.2-75.2); PLATELET COUNT (AUTO) 226 K/uL (140-450); RED BLOOD CELL COUNT(AUTO) 5.13 MIL/uL (4.20-5.40); RED CELL DISTRIBUTION WIDTH 14.4 % (11.6-13.7); WHITE BLOOD COUNT (AUTO) 7.7 K/uL (4.8-10.8)
[2016-11-09 14:01] LABS: ANION GAP 13.6 (8-16); CALCIUM 9.9 mg/dL (8.5-10.1); CARBON DIOXIDE 31.6 mmol/L (21-32); CREATININE 1.4 mg/dL (0.6-1.3); POTASSIUM 4.2 mmol/L (3.5-5.1)
[2016-11-09 14:07] LABS: ALBUMIN 3.4 g/dL (3.4-5.0); TOTAL BILIRUBIN 0.2 mg/dL (0.0-1.0)
[2016-11-09] MEDS ORDERED: ASPIRIN 325 MG TAB PO ONE (14:10)
[2016-11-09] MEDS ORDERED: HYDROmorphone 2 MG TAB PO ONE (14:20)
[2016-11-09 14:30] LABS: INR 1.1 (0.8-1.2); PARTIAL THROMBOPLASTIN TIME 28.1 secs (22-35.6); PROTHROMBIN TIME 10.3 secs (10.8-13.4)
[2016-11-09] MEDS ORDERED: NITROGLYCERIN 0.4 MG TAB SL ONE (14:40)
[2016-11-09] MEDS ORDERED: ACETAMINOPHEN EXTRA STRENGTH 500 MG TAB PO ONE (15:20)
[2016-11-09] MEDS ORDERED: ACETAMINOPHEN 325 MG TAB PO PRN (15:35)
[2016-11-09] MEDS ORDERED: ONDANSETRON 4 MG/2 ML VIAL IVP PRN (15:35)
[2016-11-09 16:14] LABS: APPEARANCE,URINE SL CLOUDY (CLEAR); BILIRUBIN,URINE 1+ (NEGATIVE); BLOOD, URINE TRACE-I (NEGATIVE); LEUKOCYTE ESTERASE ,URINE 1+ (NEGATIVE); NITRITE, URINE NEGATIVE (NEGATIVE); PH,URINE 5.5 (5.0-9.0); PROTEIN,URINE NEGATIVE (NEGATIVE); UGLUCOSE NEGATIVE (NEGATIVE); UROBILINOGEN,URINE 0.2 EU/dL (0.2 - 1)
[2016-11-09 16:15] LABS: COLOR,URINE AMBER (YELLOW)
[2016-11-09 16:30] VITALS: BP 126/81
[2016-11-09 16:30] LABS: ICTOTEST NEGATIVE (NEGATIVE); RBC,URINE 0-5 (RARE) /HPF (0-5)
[2016-11-09 16:31] LABS: BACTERIA,URINE 2+ /HPF (None Seen); SQUAMOUS EPITHELIAL CELL,UR FEW /LPF (0-3 (FEW))
[2016-11-09] MEDS: HYDROmorphone 2 MG TAB PO PRN (18:42)
[2016-11-09] MEDS: FUROSEMIDE 20 MG TAB PO SCH (18:42)
[2016-11-09 20:00] VITALS: BP 131/87
[2016-11-09] MEDS: FERROUS SULFATE 325 MG TABEC PO SCH (20:41)
[2016-11-09] MEDS: GABAPENTIN 300 MG CAP PO SCH (20:41)
[2016-11-09] MEDS: tiZANidine 4 MG TAB PO SCH (20:41)
[2016-11-09] MEDS ORDERED: MONTELUKAST SODIUM 10 MG TAB PO SCH (21:00)
[2016-11-09] MEDS ORDERED: AMITRIPTYLINE 25 MG TAB PO SCH (21:00)
[2016-11-09] MEDS ORDERED: ATORVASTATIN 20 MG TAB PO SCH (21:00)
[2016-11-09] MEDS ORDERED: TIZANIDINE HCL 4 MG PO SCH (21:00)
[2016-11-09 23:57] LABS: CREATINE KINASE MB 0.9 ng/mL (0-3.6)
[2016-11-10] VITALS: BP 128/73
[2016-11-10] MEDS: HYDROmorphone 2 MG TAB PO PRN ×2 (00:50→09:51)
[2016-11-10 04:00] VITALS: BP 122/70
[2016-11-10 07:15] LABS: BASOPHILS # (AUTO) 0.1 K/uL (0.00-0.22); BASOPHILS % (AUTO) 0.9 % (0.0-2.0); EOSINOPHILS # (AUTO) 0.7 K/uL (0-0.4); EOSINOPHILS % (AUTO) 9.7 % (0.0-4.0); HEMATOCRIT 42.6 % (36-48); HEMOGLOBIN 13.6 g/dL (12.0-16.0); LYMPHOCYTES # (AUTO) 2.2 K/uL (2.5-16.5); LYMPHOCYTES % (AUTO) 30.7 % (20.5-51.1); MEAN CORPUSCULAR HEMOGLOBIN 28 pg (27-31); MEAN CORPUSCULAR HGB CONC 32 g/dL (33-37); MEAN CORPUSCULAR VOLUME 87 fL (80-94); MONOCYTES % (AUTO) 13.9 % (1.7-9.3); NEUTROPHILS # (AUTO) 3.2 K/uL (1.8-7.7); NEUTROPHILS % (AUTO) 44.8 % (42.2-75.2); PLATELET COUNT (AUTO) 214 K/uL (140-450); RED BLOOD CELL COUNT(AUTO) 4.88 MIL/uL (4.20-5.40); RED CELL DISTRIBUTION WIDTH 14.2 % (11.6-13.7); WHITE BLOOD COUNT (AUTO) 7.2 K/uL (4.8-10.8)
[2016-11-10 07:35] LABS: ALBUMIN 3.1 g/dL (3.4-5.0); ANION GAP 12.5 (8-16); CALCIUM 8.9 mg/dL (8.5-10.1); CARBON DIOXIDE 30.6 mmol/L (21-32); CREATININE 1.4 mg/dL (0.6-1.3); POTASSIUM 3.1 mmol/L (3.5-5.1); TOTAL BILIRUBIN 0.3 mg/dL (0.0-1.0); TOTAL PROTEIN, SERUM 7.6 g/dL (6.4-8.2)
[2016-11-10 07:58] VITALS: BP 124/78
[2016-11-10] MEDS ORDERED: FLUoxetine 10 MG CAP PO SCH (09:00)
[2016-11-10] MEDS ORDERED: PANTOPRAZOLE 40 MG TABEC PO SCH (09:00)
[2016-11-10] MEDS ORDERED: LIDOCAINE 5% 1 EA PATCH TP SCH (09:00)
[2016-11-10] MEDS ORDERED: NON-FORMULARY ITEM (Fluticasone/Vilanterol (Breo Ellipta 100-25 Mcg INH) 1 POW) IH SCH (09:00)
[2016-11-10] MEDS ORDERED: METOPROLOL 25 MG TAB PO SCH ×2 (09:00)
[2016-11-10] MEDS ORDERED: ECOTRIN 81 MG TABEC PO SCH (09:00)
[2016-11-10] MEDS ORDERED: ENOXAPARIN 30 MG/0.3 ML SYR SUBQ SCH (09:00)
[2016-11-10] MEDS ORDERED: LORazepam 1 MG TAB PO SCH (09:00)
[2016-11-10] MEDS ORDERED: NON-FORMULARY ITEM (Potassium Chloride 20 MEQ) PO SCH (09:00)
[2016-11-10] MEDS ORDERED: SPIRONOLACTONE 25 MG TAB PO SCH (09:00)
[2016-11-10] MEDS ORDERED: POTASSIUM CHLORIDE 10 MEQ TABER PO SCH ×2 (09:00→12:30)
[2016-11-10] MEDS ORDERED: LEFLUNOMIDE 20 MG PO SCH (09:00)
[2016-11-10] MEDS ORDERED: NON-FORMULARY ITEM (Omeprazole (Omeprazole Dr) 20 MG) PO SCH (09:00)
[2016-11-10] MEDS: FUROSEMIDE 20 MG TAB PO SCH ×2 (09:49→17:00)
[2016-11-10] MEDS: tiZANidine 4 MG TAB PO SCH (09:49)
[2016-11-10] MEDS: FERROUS SULFATE 325 MG TABEC PO SCH (09:50)
[2016-11-10] MEDS: ALBUTEROL 0.083% 2.5 MG/3 ML NEBU INH SCH ×2 (10:38→15:02)
[2016-11-10] MEDS: IPRATROPIUM 0.02% 0.5 MG/2.5 ML NEBU INH SCH ×2 (10:38→15:02)
[2016-11-10] MEDS: GABAPENTIN 300 MG CAP PO SCH (10:54)
[2016-11-10 12:00] VITALS: BP 113/76
[2016-11-10 16:00] VITALS: BP 131/74
[2016-11-10 16:29] LABS: CREATINE KINASE MB 0.5 ng/mL (0-3.6)
== END 2016-11-10 18:20 | disposition home health service (06) | DRG 189 ==
LOC: MED 11:52 → MTU 15:35
PROVIDERS: ADMIT Hospitalist; ATTEND Hospitalist
DX: J96.20 Acute and chronic respiratory failure, unspecified whether with hypoxia or hypercapnia (principal); R07.89 Other chest pain; I11.0 Hypertensive heart disease with heart failure; M79.7 Fibromyalgia; M06.9 Rheumatoid arthritis, unspecified; J44.9 Chronic obstructive pulmonary disease, unspecified; G89.4 Chronic pain syndrome; E11.9 Type 2 diabetes mellitus without complications; E78.5 Hyperlipidemia, unspecified; Z86.73 Personal history of transient ischemic attack (TIA), and cerebral infarction without residual deficits; K21.9 Gastro-esophageal reflux disease without esophagitis; Z99.81 Dependence on supplemental oxygen; Z88.5 Allergy status to narcotic agent; Z87.891 Personal history of nicotine dependence
CPT/HCPCS: 36415; 70450; 71010; 71101; 80053; 81001; 82550; 82553; 83880; 84484; 85025; 85379; 85610; 85730; 86886; 86900; 86901; 87081; 87086; 93005; 94640; 99285; J1650; J7613; J7644; Q0092